=== PATIENT | female | born 1975 | race Caucasian/White ===

== ENCOUNTER 2019-02-16 15:35 | Emergency (ER) | payer BC ==
[2019-02-16] MEDS ORDERED: Sodium Chloride 0.9% 10 ML Syringe FLUSH PRN (15:39)
--- NOTE | 2019-02-16 15:39 | EDM.PDOC ---
ED HPI GENERAL MEDICAL PROBLEM - General Chief Complaint: Trauma Stated Complaint: trauma Time Seen by Provider: 02/16/19 15:35 Source of Information: Reports: Patient, Family (, parents), Old Records ([facility] chart/EMR) History Limitations: Reports: No Limitations - History of Present Illness INITIAL COMMENTS - FREE TEXT/NARRATIVE: The patient was brought to the emergency room via private automobile by her father for evaluation of a facial/dental injury with secondary lacerations and probable head concussion. No treatment prior to arrival. 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 She did lose several teeth as a result of the above injury with some initial confusion and event amnesia, however no significant loss of consciousness, headaches, visual changes, paresthesias, neck/back pain, neurological deficits or other complaints or injuries. Her last DTaP was confirmed the emergency room nurse as given on 12/26/13. The patient denies any chest pain/pressure, heart flutter, dizziness, orthostasis, orthopnea, diaphoresis, paresthesias, recent decreased exercise tolerance, or any other anginal-type symptoms. No recent history of abdominal pain, heartburn, nausea, diarrhea, melena, gross hematochezia, or any food intolerance, including fatty foods, etc.. The patient also denies any recent fever, cough, wheezing, dyspnea, etc.. No treatment or medications prior to arrival. Onset: Today, Sudden Onset Date: 02/16/19 Onset Time: 14:30 Duration: Constant Location: Reports: Face. Denies: Head, Neck, Chest, Abdomen, Back, Pelvis, Upper Extremity, Left, Upper Extremity, Right, Lower Extremity, Left, Radiates to Quality: Reports: Sharp, Throbbing Severity: Moderate Improves with: Reports: None Worsens with: Reports: None Context: Reports: Trauma (As above) Associated Symptoms: Reports: Confusion (Initial brief). Denies: Chest Pain, Cough, Diaphoresis, Fever/Chills, Headaches, Loss of Appetite, Malaise, Nausea/ Vomiting, Seizure, Shortness of Breath, Syncope, Weakness Treatments COLLATOR HAND: Reports: Other (see below) Oral/Mouth Pain Score (Numeric/FACES): 8 (tongue only) - Related Data Allergies Allergy/AdvReac Type Severity Reaction Status Date / Time No Known Allergies Allergy Verified 02/16/19 15:36 Home Meds: Home Meds Escitalopram Oxalate [Lexapro] 20 mg PO DAILY 02/16/19 [History] Past Medical History HEENT History: Reports: Allergic Rhinitis, Other (See Below). Denies: Cataract , Glaucoma, Hard of Hearing, Impaired Vision, Macular Degeneration, Retinal Detachment Other HEENT History: Wears glasses and soft contact lenses. Cardiovascular History: Reports: Heart Murmur. Denies: Afib, Aneurysm, Arrhythmia, Blood Clots/VTE/DVT, CAD, Hypertension, NH, PVD, Syncope Other Cardiovascular History: Mild valvular disease by echocardiogram as below. Respiratory History: Reports: None. Denies: Asthma, Bronchitis, Recurrent, COPD , Intubation, Previous, PE, Pneumonia, Recurrent, Pneumothorax, Sleep Apnea Gastrointestinal History: Reports: None. Denies: Bowel Obstruction, Celiac Disease, Cholelithiasis, Fecal Incontinence, GERD, GI Bleed, Hepatitis, Inflammatory Bowel Disease, Irritable Bowel Syndrome, Jaundice, Pancreatitis, PUD Genitourinary History: Reports: None. Denies: Acute Renal Failure, Chronic Renal Insuffiency, Renal Calculus, Retention, Urinary, STD, Urinary Incontinence , UTI, Recurrent SEAFOOD MANAGER History: Reports: Dysfunctional Uterine Bleeding, Fibroids. Denies: Endometriosis : 0 LMP (Approximate): Other (See Below) Other SEAFOOD MANAGER History: Mild fibroids with hypermenorrhea and irregular menses with current Mirena therapy implanted in November 2018 and no current menses. Musculoskeletal History: Reports: Fracture, Other (See Below). Denies: Arthritis, Back Pain, Chronic, Gout, Neck Pain, Chronic, Osteoarthritis, RA, SLE Other Musculoskeletal History: Comminuted right mid tibial and fibular fracture on 04/11/16 with surgery as below. Neurological History: Reports: None. Denies: Concussion, CVA, Headaches, Chronic, Head Trauma, Migraines, MS, Neuropathy, Peripheral, Parkinson's, Seizure, TIA Psychiatric History: Reports: Anxiety, Depression. Denies: Abuse, Victim of, ADHD, Addiction, Psych Hospitalization(s), PTSD, Suicide Attempt, Suicidal Ideation Endocrine/Metabolic History: Reports: Other (See Below). Denies: Diabetes, Gestational, Diabetes, Type I, Diabetes, Type II, Diabetes Mellitus, Type 3c, Hypothyroidism, IDDM Other Endocrine/Metabolic History: Occasional borderline hypoglycemia. Hematologic History: Reports: None. Denies: Anemia, Iron Deficiency Immunologic History: Reports: None. Denies: AIDS, HIV, SLE Oncologic (Cancer) History: Reports: None. Denies: Basal Cell Carcinoma, Breast , Cervix, Hodgkin's Lymphoma, Leukemia, Lymphoma, Malignant Melanoma, Non- Hodgkin's Lymphoma, Ovarian, Squamous Cell Carcinoma, Uterine Dermatologic History: Denies: Eczema, Psoriasis - Infectious Disease History Infectious Disease History: Reports: Chicken Pox. Denies: C-Difficile, Measles , Meningitis, Mononucleosis, MRSA, Mumps, Pertussis (Whooping Cough), Rheumatic Fever, Rubella, Scarlet Fever, Shingles, TB, VRE - Past Surgical History Head Surgeries/Procedures: Reports: None HEENT Surgical History: Denies: Adenoidectomy, Cataract Surgery, Eye Surgery, Laser Surgery, LASIK, Myringotomy w Tube(s), Naso-Sinus Surgery, Oral Surgery, Tonsillectomy Cardiovascular Surgical History: Reports: None. Denies: Pacer Respiratory Surgical History: Reports: None. Denies: Thoracentesis GI Surgical History: Reports: None. Denies: Appendectomy, Cholecystectomy, Colonoscopy, EGD, Hernia, Abdominal, Hernia, Inguinal, Hernia Repair/Other Female Surgical History: Reports: Other (See Below). Denies: Breast Biopsy Other Female Surgeries/Procedures: Endometrial biopsy in 2019 with Mirena IUD placement in November 2018. Endocrine Surgical History: Reports: None. Denies: Thyroid Biopsy Neurological Surgical History: Reports: None. Denies: C-Spine, Discectomy, Laminectomy, Lumbar Spine, Sacral Spine, Spinal Fusion, Thoracic Spine, Vertebroplasty Musculoskeletal Surgical History: Reports: ORIF, Other (See Below). Denies: Arthroscopic Procedure, Carpal Tunnel, Ganglion Cyst, Joint Replacement, Shoulder Replacement, Shoulder Surgery Other Musculoskeletal Surgeries/Procedures:: ORIF and lobito placement for repair of right tibial and fibular fracture in 2016 as above Oncologic Surgical History: Reports: None Dermatological Surgical History: Reports: None - Past Imaging History Past Imaging History: Reports: Cardiac Echo (08/08/14 with ejection fraction of 6065 percent), Mammogram (08/04/18), Ultrasound (Pelvic ultrasound on 07/28/18. Renal ultrasound on 09/13/13. Left breast ultrasound on 08/04/18.) Social & Family History - Tobacco Use Smoking Status *Q: Never Smoker Tobacco Use Within Last Twelve Months: No Used Tobacco, but Quit: No Smoking Cessation Information Provided To Patient: No Second Hand Smoke Exposure: No Second Hand Smoke Education Provided: No - Caffeine Use Caffeine Use: Reports: Coffee (2 cups per day), Soda (2 sodas per week). Denies : Energy Drinks, Tea - Alcohol Use Alcohol Use History: Yes Days Per Week of Alcohol Use: 0 Number of Drinks Per Day: 1 Number of Drinks Per Day Comment: Usually mixed drinks twice per month. No previous DWIs, problems with alcohol abuse, etc. 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 ED EXAM, GENERAL - Physical Exam Exam: See Below Exam Limited By: No Limitations General Appearance: Alert, WD/WN, No Apparent Distress, Anxious (Mild to moderate) Eye Exam: Bilateral Eye: EOMI, Normal Fundi, Normal Inspection (No nystagmus, soft contact lenses bilaterally), PERRL Ears: Normal External Exam, Normal Canal, Hearing Grossly Normal, Normal TMs Nose: Normal Inspection, Normal Mucosa, No Blood Throat/Mouth: Normal Gums (Exception of absent dentition as above), Normal Oropharynx, Normal Voice, No Airway Compromise, Other (7 Centimeter in length irregular laceration over the anterior and inferior aspects of the right tongue) . No: Normal Lips (1 cm in length laceration over the mid right lower lip which does not connect to the outer right external infralabial laceration), Normal Teeth (Absent 1, 2, 3 right upper dentition with loose #4 #5 right upper dentition; loose #1 #2 and #3 left upper dentition. No evidence of maxillary crepitation, deformity, etc.), Dysphagia, Perioral Cyanosis Head: Other (No raccoon eyes or significant facial tenderness, deformity, crepitation, etc. 1 cm in length mild irregular laceration inferior to the mid anterior sublabial region). No: Facial Swelling, Facial Tenderness, Sinus Tenderness Neck: Normal Inspection, Supple, Non-Tender, Full Range of Motion. No: Carotid Bruit, Lymphadenopathy (L), Lymphadenopathy (R), Thyromegaly Respiratory/Chest: No Respiratory Distress, Lungs Clear, Normal Breath Sounds, No Accessory Muscle Use, Chest Non-Tender. No: Pleural Rub, Retractions Cardiovascular: Normal Peripheral Pulses, Regular Rate, Rhythm, No Edema, No Gallop, No JVD, No Murmur, No Rub. No: Gallop/S3, Gallop/S4, Friction Rub Peripheral Pulses: 2+: Radial (L), Radial (R), Dorsalis Pedis (L), Dorsalis Pedis (R) GI/Abdominal: Normal Bowel Sounds, Soft, Non-Tender, No Organomegaly, No Distention, No Abnormal Bruit, No Mass, Pelvis Stable. No: Guarding (Female) Exam: Deferred Rectal (Female) Exam: Deferred Back Exam: Normal Inspection, Full Range of Motion. No: CVA Tenderness (L), CVA Tenderness (R), Muscle Spasm Extremities: Normal Inspection, Normal Range of Motion, Non-Tender, No Pedal Edema, Normal Capillary Refill. No: Vipul's Sign Neurological: Alert, Oriented, CN II-XII Intact, Normal Cognition, Normal Gait, Normal Reflexes (Negative Babinski's, finger to nose, and pronator rotation tests. No evidence of facial paresis, tongue deviation, orthostasis, etc.. Excellent reverse thought processes.), No Motor/Sensory Deficits Psychiatric: Anxious (Mild to moderate), Depressed Mood (Mild) Skin Exam: Ecchymosis (Multiple small areas of ecchymosis on her abdomen, back and legs bilaterally with no evidence of acute injury), Wound/Incision (As above ). No: Diaphoretic Lymphatic: No Adenopathy ED TRAUMA PROCEDURES - Laceration/Wound Repair Anterior Other Lac/Wound Length In cm: 7 Appearance: Subcutaneous, Muscle, Stellate, Irregular, Clean Distal NVT: Neuro & Vascular Intact, No Tendon Injury Anesthetic Type: Local Local Anesthesia - Lidocaine (Xylocaine): 1% Plain Local Anesthetic Volume: 5cc Skin Prep: Chlorhexidine (Hibiciens), Providone-Iodine (Betadine) Saline Irrigation (cc's): 0 Exploration/Debridement/Repair: Wound Explored, In a Bloodless Field, Explored to Base, Multiple Flaps Aligned Closed With: Sutures Suture Size: 4-0 # of Sutures: 10 Suture Type: Interrupted, Simple, Other (6 superior and 4 inferior) Drain Placement: No Sterile Dressing Applied: None Tetanus Status Addressed: Yes Complications: No Progress/Comments: Tongue repair Right Lower Other Lac/Wound Length In cm: 1 Appearance: Subcutaneous Distal NVT: Neuro & Vascular Intact, No Tendon Injury Anesthetic Type: Local Local Anesthesia - Lidocaine (Xylocaine): 1% Plain Local Anesthetic Volume: 1cc Skin Prep: Chlorhexidine (Hibiciens), Providone-Iodine (Betadine) Saline Irrigation (cc's): 0 Exploration/Debridement/Repair: Wound Explored, In a Bloodless Field, Explored to Base, Multiple Flaps Aligned Closed With: Sutures Suture Size: 4-0 Suture Type: Interrupted, Simple, Other (Vicryl) Sterile Dressing Applied: None Tetanus Status Addressed: Yes Complications: No Progress/Comments: Right inner lower lip Right Face Lac/Wound Length In cm: 1 Appearance: Superficial, Clean Distal NVT: Neuro & Vascular Intact, No Tendon Injury Anesthetic Type: Digital Local Anesthesia - Lidocaine (Xylocaine): 1% Plain Local Anesthetic Volume: 1cc Skin Prep: Chlorhexidine (Hibiciens), Providone-Iodine (Betadine) Saline Irrigation (cc's): 0 Exploration/Debridement/Repair: Wound Explored, In a Bloodless Field, Explored to Base, No Foreign Material Found Closed With: Sutures Suture Size: 4-0 # of Sutures: 2 Suture Type: Nylon, Interrupted, Simple Drain Placement: No Sterile Dressing Applied: Nurse Tetanus Status Addressed: Yes Complications: No Course - Vital Signs Last Recorded V/S: See Trauma Sheet - Orders/Labs/Meds Orders: Active Orders 24 hr Category Date Time Status Cardiac Monitoring [RC] . DIRECTED Care 02/16/19 15:39 Active Communication Order [RC] ROUTINE Care 02/16/19 17:54 Active Oxygen Therapy, ED [RC] CONTINUOUS Care 02/16/19 15:39 Active Peripheral IV Care [RC] . DIRECTED Care 02/16/19 15:39 Active Pulse Oximetry [RC] PRN Care 02/16/19 15:39 Active Up With Assistance [RC] PFP Care 02/16/19 15:39 Active Vaccines to be Administered [RC] PER UNIT ROUTINE Care 02/16/19 16:01 Active Vital Signs [RC] PFP Care 02/16/19 16:05 Active Nothing per Oral Now Diet [DIET] Diet 02/16/19 Breakfast Active Chest 1V Frontal [CR] Stat Exams 02/16/19 15:39 Taken Head wo Cont [CT] Stat Exams 02/16/19 15:39 Taken Max Facial Sinus wo Cont [CT] Stat Exams 02/16/19 15:39 Taken CULTURE URINE [RM] Routine Lab 02/16/19 16:05 Received Sodium Chloride 0.9% [Saline Flush] Med 02/16/19 15:39 Active 10 ml FLUSH ASDIRECTED PRN Obtain Past Medical Record [OM.PC] Urgent Oth 02/16/19 15:39 Active Peripheral IV Insertion Adult [OM.PC] Stat Oth 02/16/19 15:39 Ordered Resuscitation Status Stat Resus Stat 02/16/19 15:39 Ordered Medication Orders Sodium Chloride (Saline Flush) 10 ml FLUSH ASDIRECTED PRN PRN Reason: Keep Vein Open Labs: Laboratory Tests 02/16/19 02/16/19 02/16/19 Range/Units 15:40 15:40 15:40 WBC 8.4 (4.0-10.2) K/uL RBC 4.12 (3.77-5.09) M/uL Hgb 13.2 (11.7-15.5) g/dL Hct 37.1 (34.0-46.0) % MCV 90.0 (84.0-98.0) fL MCH 32.0 (28.2-33.3) pg MCHC 35.6 (31.7-36.0) g/dL RDW 13.0 (11.2-14.1) % Plt Count 233 (150-350) K/uL Neut % (Auto) 70.4 (45.0-80.0) % Lymph % (Auto) 20.5 (10.0-50.0) % [place] % (Auto) 8.3 (2.0-14.0) % Eos % (Auto) 0.6 (0.0-5.0) % Baso % (Auto) 0.2 (0.0-2.0) % Neut # (Auto) 5.90 (1.40-7.00) K/uL Lymph # (Auto) 1.72 (0.50-3.50) K/uL [place] # (Auto) 0.70 (0.00-1.00) K/uL Eos # (Auto) 0.05 (0.00-0.50) K/uL Baso # (Auto) 0.02 (0.00-0.20) K/uL PT 10.4 (9.5-12.0) SEC INR 1.0 APTT 27.0 (21.0-31.3) SEC Sodium 140 (136-145) mmol/L Potassium 3.5 (3.5-5.1) mmol/L Chloride 105 (98-107) mmol/L Carbon Dioxide 25.2 (21.0-32.0) mmol/L BUN 13 (7-18) mg/dL Creatinine 0.94 (0.51-1.17) mg/dL Est Cr Clr Drug Dosing TNP Estimated GFR (MDRD) > 60 mL/min Glucose 107 H (74-106) mg/dL Lactic Acid (0.4-2.0) mmol/L Uric Acid 4.7 (2.6-7.2) mg/dL Calcium 8.6 (8.5-10.1) mg/dL Magnesium 1.7 L (1.8-2.4) mg/dL Total Bilirubin 0.6 (0.2-1.0) mg/dL AST 29 (15-37) U/L ALT 40 (12-78) U/L Alkaline Phosphatase 92 (46-116) IU/L Creatine Kinase 253 (26-308) U/L Creatine Kinase Index 1.3 (0.0-2.5) % CK-MB (CK-2) 3.40 (0.00-3.60) ng/mL Troponin I 0.007 (0.000-0.056) ng/mL Total Protein 7.5 (6.4-8.2) g/dL Albumin 3.9 (3.4-5.0) g/dL Amylase 28 (25-115) U/L Lipase 129 (73-393) U/L HCG, Qual (NEGATIVE) Specimen Type Urine Color Urine Appearance Urine pH (5.0-9.0) Ur Specific [place] (1.005-1.030) Urine Protein (NEGATIVE) mg/dL Urine Glucose (UA) (NEGATIVE) mg/dL Urine Ketones (NEGATIVE) mg/dL Urine Occult Blood (NEGATIVE) Urine Nitrite (NEGATIVE) Urine Bilirubin (NEGATIVE) Urine Urobilinogen (0.2-1.0) E.U./dL Ur Leukocyte Esterase (NEGATIVE) Urine RBC /HPF Urine WBC /HPF Ur Epithelial Cells /LPF Urine Bacteria (NONE TO FEW) /HPF 02/16/19 02/16/19 02/16/19 Range/Units 15:40 15:40 16:05 WBC (4.0-10.2) K/uL RBC (3.77-5.09) M/uL Hgb (11.7-15.5) g/dL Hct (34.0-46.0) % MCV (84.0-98.0) fL MCH (28.2-33.3) pg MCHC (31.7-36.0) g/dL RDW (11.2-14.1) % Plt Count (150-350) K/uL Neut % (Auto) (45.0-80.0) % Lymph % (Auto) (10.0-50.0) % [place] % (Auto) (2.0-14.0) % Eos % (Auto) (0.0-5.0) % Baso % (Auto) (0.0-2.0) % Neut # (Auto) (1.40-7.00) K/uL Lymph # (Auto) (0.50-3.50) K/uL [place] # (Auto) (0.00-1.00) K/uL Eos # (Auto) (0.00-0.50) K/uL Baso # (Auto) (0.00-0.20) K/uL PT (9.5-12.0) SEC INR APTT (21.0-31.3) SEC Sodium (136-145) mmol/L Potassium (3.5-5.1) mmol/L Chloride (98-107) mmol/L Carbon Dioxide (21.0-32.0) mmol/L BUN (7-18) mg/dL Creatinine (0.51-1.17) mg/dL Est Cr Clr Drug Dosing Estimated GFR (MDRD) mL/min Glucose (74-106) mg/dL Lactic Acid 1.8 (0.4-2.0) mmol/L Uric Acid (2.6-7.2) mg/dL Calcium (8.5-10.1) mg/dL Magnesium (1.8-2.4) mg/dL Total Bilirubin (0.2-1.0) mg/dL AST (15-37) U/L ALT (12-78) U/L Alkaline Phosphatase (46-116) IU/L Creatine Kinase (26-308) U/L Creatine Kinase Index (0.0-2.5) % CK-MB (CK-2) (0.00-3.60) ng/mL Troponin I (0.000-0.056) ng/mL Total Protein (6.4-8.2) g/dL Albumin (3.4-5.0) g/dL Amylase (25-115) U/L Lipase (73-393) U/L HCG, Qual Negative (NEGATIVE) Specimen Type Urincc Urine Color Yellow Urine Appearance Clear Urine pH 6.0 (5.0-9.0) Ur Specific [place] 1.015 (1.005-1.030) Urine Protein Negative (NEGATIVE) mg/dL Urine Glucose (UA) Negative (NEGATIVE) mg/dL Urine Ketones Trace H (NEGATIVE) mg/dL Urine Occult Blood Moderate H (NEGATIVE) Urine Nitrite Negative (NEGATIVE) Urine Bilirubin Negative (NEGATIVE) Urine Urobilinogen 0.2 (0.2-1.0) E.U./dL Ur Leukocyte Esterase Negative (NEGATIVE) Urine RBC Not seen /HPF Urine WBC 0-5 /HPF Ur Epithelial Cells Many H /LPF Urine Bacteria Moderate H (NONE TO FEW) /HPF Urine specimen set up for culture and sensitivity. Meds: Medications Generic Name Dose Route Start Last Admin Trade Name Freq PRN Reason Stop Dose Admin Sodium Chloride 10 ml 02/16/19 15:39 Saline Flush FLUSH ASDIRECTED PRN Keep Vein Open Discontinued Medications Generic Name Dose Route Start Last Admin Trade Name Freq PRN Reason Stop Dose Admin Ceftriaxone Sodium 1 gm 02/16/19 17:44 02/16/19 17:59 Rocephin IM 02/16/19 17:45 1 gm ONETIME ONE Administration Diphtheria/Tetanus/Acell Pertussis 0.5 ml 02/16/19 16:01 02/16/19 17:20 Adacel IM 02/16/19 16:02 0.5 ml .ONCE ONE Administration Lidocaine HCl 5 ml 02/16/19 16:01 02/16/19 16:16 Xylocaine-Mpf 1% INJECT 02/16/19 16:02 5 ml ONETIME ONE Administration Lidocaine HCl 5 ml 02/16/19 16:02 02/16/19 16:16 Xylocaine-Mpf 1% INJECT 02/16/19 16:03 5 ml ONETIME ONE Administration Lidocaine HCl 0 ml 02/16/19 17:45 02/16/19 18:00 Xylocaine-Mpf 1% INJECT 02/16/19 17:46 2.1 ml ONETIME ONE Administration Neomycin/Polymyxin/Bacitracin 1 each 02/16/19 16:01 02/16/19 16:16 Triple Antibiotic Oint TOP 02/16/19 16:02 1 each ONETIME ONE Administration - Radiology Interpretation Free Text/Narrative:: Chest x-ray, portable, shows borderline mild pulmonary obstructive disease with no pulmonary infiltrates, cardiomegaly, CHF, pneumothorax, rib fractures, etc. Telephone consultation at 16:23 hours with the radiology department at [facility]. Preliminary verbal report of noncontrast CT scan of the head was negative. Official report of CT scan of the maxillofacial region without contrast received at 17:40 hours with preliminary verbal report not given despite our request. Until injuries confirmed with mildly comminuted fracture of the right anterior maxillary region CT Results Date: 02/16/19 CT Results Time: 16:23 Departure - Departure Time of Disposition: 18:05 Disposition: DC/Tfer to Acute Hospital 02 Condition: Good Clinical Impression: Trauma, Hypomagnesemia, Mixed anxiety depressive disorder, Concussion Dental injury Qualifiers: Encounter type: initial encounter Qualified Code(s): S09.93XA - Unspecified injury of face, initial encounter Face lacerations Qualifiers: Encounter type: initial encounter Qualified Code(s): S01.81XA - Laceration without foreign body of other part of head, initial encounter - Discharge Information *PRESCRIPTION DRUG MONITORING PROGRAM REVIEWED*: Yes *COPY OF PRESCRIPTION DRUG MONITORING REPORT IN PATIENT FABIAN: Yes Referrals: Anabela Oro PA-C [Primary Care Provider] - Forms: ED Department Discharge, Interfacility Transfer EMTALA Additional Instructions: 1. STRICT nothing to eat or drink until advised by [place] physicians. 2. Family members are to drive you FLO to the emergency room at [facility]. - Problem List & Annotations (1) Trauma SNOMED Code(s): 905961158 Code(s): T14.90XA - INJURY, UNSPECIFIED, INITIAL ENCOUNTER Status: Acute Priority: High Current Visit: Yes Onset Date: 02/16/19 Annotation/Comment: : Trauma code called immediately upon patient's arrival to this facility secondary to mechanism of injury. Note multiple injuries as below with stable patient condition at time of transfer as below. (2) Dental injury SNOMED Code(s): 341952147 Code(s): S09.93XA - UNSPECIFIED INJURY OF FACE, INITIAL ENCOUNTER Status: Acute Priority: High Current Visit: Yes Onset Date: 02/16/19 Annotation/ Comment:: Significant dental injury as above with mildly comminuted nondisplaced right anterior maxillary fracture. CT results as above. Initial telephone consultation with [facility] at 17:30 hours with subsequent telephone consultation with Dr. Sim, oral maxillary surgeon, who agrees to evaluate the patient in the emergency room after initial ER physician evaluation , with no further treatment recommendations given. He is also in agreement with IM Rocephin injection prior to transfer. Subsequent telephone consultation at 17 :[address] Pedraza, ER physician at [facility] in [place], who does agree to accept the patient, with no further treatment recommendations given. He is aware of private automobile transfer. Vital signs, physical exam, etc. are stable with private automobile transfer appropriate in this patient Qualifiers: Encounter type: initial encounter Qualified Code(s): S09.93XA - Unspecified injury of face, initial encounter (3) Face lacerations SNOMED Code(s): 518894303 Code(s): S01.81XA - LACERATION W/O FOREIGN BODY OF OTH PART OF HEAD, INIT ENCNTR Status: Acute Priority: High Current Visit: Yes Onset Date: 02/16 Annotation/Comment:: Excellent results with laceration repairs as above. DTaP given. Outer right lower lip suture should be removed in about 710 days. Qualifiers: Encounter type: initial encounter Qualified Code(s): S01.81XA - Laceration without foreign body of other part of head, initial encounter (4) Concussion SNOMED Code(s): 607634290 Code(s): S06.0X9A - CONCUSSION W LOSS OF CONSCIOUSNESS OF UNSP DURATION, INIT Status: Acute Priority: High Current Visit: Yes Onset Date: Annotation/Comment:: Mild borderline head concussion with no known significant head injury. CT scan of the head was negative. Neurological exam normal. Qualifiers: Encounter type: initial encounter Loss of consciousness presence/duration: without LOC Qualified Code(s): S06.0X0A - Concussion without loss of consciousness, initial encounter (5) Hypomagnesemia SNOMED Code(s): 694100604 Code(s): E83.42 - HYPOMAGNESEMIA Status: Acute Priority: Medium Current Visit: Yes Onset Date: 02/16/19 Annotation/Comment:: Borderline. Observe for now. Consider repeat magnesium level with primary care provider at one-week follow-up for suture removal. (6) Mixed anxiety depressive disorder SNOMED Code(s): 838932806 Code(s): F41.8 - OTHER SPECIFIED ANXIETY DISORDERS Status: Chronic Priority: Medium Current Visit: Yes Annotation/Comment:: Stable by history with recently started antidepressant therapy. Continue to observe closely by regular providers. - Problem List Review Problem List Initiated/Reviewed/Updated: Yes - My Orders Last 24 Hours: My Active Orders 02/16/19 15:39 Cardiac Monitoring [RC] . DIRECTED Oxygen Therapy, ED [RC] CONTINUOUS Peripheral IV Care [RC] . DIRECTED Pulse Oximetry [RC] PRN Up With Assistance [RC] PFP Chest 1V Frontal [CR] Stat Head wo Cont [CT] Stat Max Facial Sinus wo Cont [CT] Stat Sodium Chloride 0.9% [Saline Flush] 10 ml FLUSH ASDIRECTED PRN Obtain Past Medical Record [OM.PC] Urgent Peripheral IV Insertion Adult [OM.PC] Stat Resuscitation Status Stat 02/16/19 16:01 Vaccines to be Administered [RC] PER UNIT ROUTINE 02/16/19 16:05 Vital Signs [RC] PFP CULTURE URINE [RM] Routine 02/16/19 17:54 Communication Order [RC] ROUTINE 02/16/19 Breakfast Nothing per Oral Now Diet [DIET] - Assessment/Plan Last 24 Hours: My Active Orders 02/16/19 15:39 Cardiac Monitoring [RC] . DIRECTED Oxygen Therapy, ED [RC] CONTINUOUS Peripheral IV Care [RC] . DIRECTED Pulse Oximetry [RC] PRN Up With Assistance [RC] PFP Chest 1V Frontal [CR] Stat Head wo Cont [CT] Stat Max Facial Sinus wo Cont [CT] Stat Sodium Chloride 0.9% [Saline Flush] 10 ml FLUSH ASDIRECTED PRN Obtain Past Medical Record [OM.PC] Urgent Peripheral IV Insertion Adult [OM.PC] Stat Resuscitation Status Stat 02/16/19 16:01 Vaccines to be Administered [RC] PER UNIT ROUTINE 02/16/19 16:05 Vital Signs [RC] PFP CULTURE URINE [RM] Routine 02/16/19 17:54 Communication Order [RC] ROUTINE 02/16/19 Breakfast Nothing per Oral Now Diet [DIET] Assessment:: As above Plan: As above. Extensive precautions were given to the patient and her family, who are in agreement with the treatment plan. See Patient Instructions for further treatment and plan. Private automobile transfer as above.
[2019-02-16] MEDS ORDERED: Diphtheria,Pertussis(Acell),Tetanus Vaccine 0.5 ML SDV IM ONE (16:01)
[2019-02-16] MEDS ORDERED: Bacitracin/Neomycin/Polymyxin B Oint 0.9 GM U/D Packet TOP ONE (16:01)
[2019-02-16 16:13] LABS: CHLORIDE,CL 105 mmol/L (98-107); SODIUM,NA 140 mmol/L (136-145)
[2019-02-16] MEDS ORDERED: cefTRIAXone 1 GM Vial IM ONE (17:44)
== END 2019-02-16 18:05 ==
LOC: LL.ED 15:35
DX: S06.0X0A Concussion without loss of consciousness, initial encounter (principal); F41.8 Other specified anxiety disorders; E83.42 Hypomagnesemia; S01.81XA Laceration without foreign body of other part of head, initial encounter
CPT/HCPCS: 12011; 36000; 36415; 41252; 70450; 70486; 71045; 80053; 81001; 82150; 82550; 82553; 83605; 83690; 83735; 84484; 84550; 84703; 85025; 85610; 85730; 87086; 87088; 87186; 90471; 90715; 96372; 99285-25; J0696; J2001